=== PATIENT | male | born 1965 | race Caucasian/White ===

== ENCOUNTER 2021-03-10 06:24 | Day surgery (SDC) | payer OTHER ==
[2021-03-09 09:22] VITALS: BMI 30.2
[2021-03-10] MEDS ORDERED: Lidocaine 1% MPF 2 ML VIAL ONE (06:56)
[2021-03-10] MEDS ORDERED: PROPOFOL 40 ML ONE (07:05)
[2021-03-10] MEDS ORDERED: Lidocaine 1% PF 5 ML VIAL ONE (07:05)
[2021-03-10] MEDS ORDERED: PROPOFOL 20 ML ONE ×3 (07:05→08:34)
== END 2021-03-10 10:00 | disposition home or self-care (01) ==
LOC: CSHSDC 06:24
PROVIDERS: ATTEND Internal Medicine Gastroenterology
DX: Z12.11 Encounter for screening for malignant neoplasm of colon (principal); K21.9 Gastro-esophageal reflux disease without esophagitis; K29.30 Chronic superficial gastritis without bleeding; K21.00 Gastro-esophageal reflux disease with esophagitis, without bleeding; K44.9 Diaphragmatic hernia without obstruction or gangrene; K25.9 Gastric ulcer, unspecified as acute or chronic, without hemorrhage or perforation; K57.30 Diverticulosis of large intestine without perforation or abscess without bleeding; K64.9 Unspecified hemorrhoids; K62.1 Rectal polyp
CPT/HCPCS: 88305; J2704